=== PATIENT | male | born 1945 | race Caucasian/White ===

== ENCOUNTER 2018-03-17 19:19 | Observation (INO) | payer OTHER ==
[2018-03-17 19:51] LABS: Absolute Lymphocytes (CBC) 1.5 K/uL (0.7-4.9); Absolute Monocytes 0.7 K/uL (0.1-1.3); Absolute Neutrophil 7.7 K/uL (1.8-8.0); Basophils % 0.7 % (0-1.3); Eosinophils % 1.5 % (0-4.4); Hematocrit 49.5 % (39.6-49.0); Lymphocytes % 14.9 % (15.3-44.8); MCH 29.8 pg (27.0-35.0); MCV 90.8 fL (80-100); MPV 9.7 fL (7.6-11.3); Monocytes % 6.9 % (3.3-12.3); RBC Red Blood Cell Count 5.44 M/uL (4.33-5.43)
[2018-03-17 20:01] LABS: Protime INR 0.98
[2018-03-17 20:09] LABS: Potassium 4.6 mEq/L (3.6-5.0)
[2018-03-17 20:15] LABS: Albumin 3.7 g/dL (3.2-5.5); Bilirubin Direct 0.2 mg/dL (0-0.2); Bilirubin Total 0.9 mg/dL (0.3-1.2); Magnesium 1.8 mg/dL (1.8-2.5); Protein, Total 6.6 g/dL (6.0-8.3)
--- NOTE | 2018-03-17 20:31 | RAD REPORT ---
EXAM DESCRIPTION: CT - Stone Protocol - 03/17/2018 8:07 pm CLINICAL HISTORY: Abdominal pain. COMPARISON: 2013 TECHNIQUE: Computed axial tomography of the abdomen pelvis was obtained without oral or IV contrast. Lack of IV and oral contrast limits evaluation of solid organs, bowel, and vessels. Coronal reformat alta images were obtained and reviewed. All CT scans are performed using dose optimization technique as appropriate and may include automated exposure control or mA/KV adjustment according to patient size. FINDINGS: A renal calculus is not seen. An ureteral calculus is not noted. A bladder calculus is not present. A 32 millimeter right renal cyst is present. The liver, spleen, pancreas and adrenals appear grossly normal Postsurgical changes involve the colon. An obstruction is not noted. A small amount of ascites is present. The wall of several loops of small bowel is thickened within th e right upper quadrant as well as the mid abdomen. Stranding is present within the adjacent mesentery IMPRESSION: Negative for a genitourinary calculus Thickened small bowel loops with stranding within the adjacent mesentery could indicate inflammation, infection or ischemia
--- NOTE | 2018-03-17 21:48 | RAD REPORT ---
EXAM DESCRIPTION: Darryl Single View03/17/2018 8:22 pm CLINICAL HISTORY: Chest pain COMPARISON: July 2017 FINDINGS: The lungs appear clear of acute infiltrate. The heart is normal size. Postsurgical change s involve the chest IMPRESSION: No acute abnormalities displayed
--- NOTE | 2018-03-17 22:00 | ER ---
Nurse's Notes [facility] Name: Long Chopra Age: 72 yrs Sex: Male : 1945 Arrival Date: 03/17/2018 Time: 19:21 Bed 27 Private MD: Rios Palomo B Diagnosis: Syncope and collapse;enteritis Presentation: 03/17 19:21 Presenting complaint: EMS states: Pt. arrived from home by EMS, c/o syncope. Pt. states rk2 that he felt as if he was going to pass out... was able to crawl back to the house to get help. Upon EMS arrival orthostatic vitals started; however, pt. had a syncopal episode when sitting up, lasting approx. 30 sec. FSBG 101. Pt. states that he did feel SOB and mild CP before feeling faint. Pt. also reports having abd cramping all morning... denies diarrhea. Transition of care: patient was not received from another setting of care. Onset of symptoms was March 17, 2018. Risk Assessment: Do you want to hurt yourself or someone else? Patient reports no desire to harm self or others. Initial Sepsis Screen: Does the patient meet any 2 criteria? No. Patient's initial sepsis screen is negative. Does the patient have a suspected source of infection? No. Patient's initial sepsis screen is negative. Care prior to arrival: Medication(s) given: Normal saline infusion, 500 mL, IV initiated. 20 GA, in the left antecubital area, Glucose check: 101. 19:21 Method Of Arrival: EMS: [facility] 2 19:21 Acuity: ANA 3 rk2 Triage Assessment: 19:31 General: Appears in no apparent distress. well groomed, well developed, well nourished, rk2 Behavior is calm, cooperative. Pain: Denies pain. Pain: Denies pain. Complains of pain in abdomen. Neuro: Neuro: Reports dizziness. Cardiovascular: No deficits noted. Rhythm is regular. Respiratory: Airway is patent Respiratory effort is even, unlabored, Respiratory pattern is regular, symmetrical. GI: Reports lower abdominal pain, upper abdominal pain, cramping. Derm: Skin is pink, warm \T\ dry. Historical: - Allergies: 19:26 No Known Allergies; rk2 - Home Meds: 20:23 levothyroxine 75 mcg tab 1 tab once daily [Active]; metoprolol tartrate 25 mg Oral tab rk2 1 tab once daily [Active]; escitalopram oxalate 10 mg oral tab 1 tab once daily [Active]; lisinopril 5 mg Oral tab 1 tab once daily [Active]; bupropion HCl 150 mg Oral Tb24 1 tab once daily [Active]; - PMHx: 19:26 CABG; Hypertension; rk2 - Immunization history:: Pneumococcal vaccine is up to date, Flu vaccine is up to date. - Social history:: Smoking status: Patient/guardian denies using tobacco, never smoked. - Ebola Screening: : Patient negative for fever greater than or equal to 101.5 degrees Fahrenheit, and additional compatible Ebola Virus Disease symptoms. Screenin:31 Abuse screen: Denies threats or abuse. Nutritional screening: No deficits noted. rk2 Tuberculosis screening: No symptoms or risk factors identified. Fall Risk Secondary diagnosis (15 points) IV access (20 points). Assessment: 20:32 Reassessment: Patient appears in no apparent distress at this time. No changes from rk2 previously documented assessment. Patient and/or family updated on plan of care and expected duration. Pain level reassessed. Neuro: Level of Consciousness is alert, Oriented to person, place, time, situation. Cardiovascular: Rhythm is regular. 21:30 Reassessment: Patient appears in no apparent distress at this time. No changes from rk2 previously documented assessment. Patient and/or family updated on plan of care and expected duration. Pain level reassessed. Family \T\ bedside. No needs voiced. 22:30 Reassessment: Patient appears in no apparent distress at this time. No changes from rk2 previously documented assessment. Patient and/or family updated on plan of care and expected duration. Pain level reassessed. Vital Signs: 19:27 BP 131 / 110; Pulse 58; Resp 19; Temp 97.5; Pulse Ox 100% on R/A; rk2 20:00 BP 131 / 79; Pulse 56; Resp 17; Pulse Ox 100% on R/A; rk2 21:30 BP 128 / 72; Pulse 56; Resp 17; Pulse Ox 98% on R/A; rk2 23:00 BP 119 / 63; Pulse 58; Resp 17; Pulse Ox 97% on R/A; rk2 ED Course: 19:21 Patient arrived in ED. ds1 19:21 Paty Burdick, RN is Primary Nurse. rk2 19:21 Rios Palomo MD is Private Physician. ds1 19:24 Rigo Estrada MD is Attending Physician. gs 19:25 Triage completed. rk2 19:27 Inserted saline lock: 20 gauge in right antecubital area, using aseptic technique. jb5 Blood collected. 19:31 Patient has correct armband on for positive identification. Bed in low position. Call rk2 light in reach. Side rails up X2. monitor technician on. Pulse ox on. 19:[address] via stretcher. ak 20:07 CT Stone Protocol In Process Unspecified. EDMS 20:12 XRAY Chest (1 view) Sent. rk2 20:20 X-ray completed. Portable x-ray completed in exam room. Patient tolerated procedure nj well. 20:20 XRAY Chest (1 view) In Process Unspecified. EDMS 21:58 Muna Tinsley MD is Hospitalizing Provider. gs 23:37 Arm band placed on. rk2 23:37 No provider procedures requiring assistance completed. Patient admitted, IV remains in rk2 place. Administered Medications: No medications were administered Point of Care Testin:34 completed in blood work rk2 Ranges: Outcome: 21:59 Decision to Hospitalize by Provider. gs 23:37 Admitted to Tele accompanied by tech, via stretcher. rk2 23:37 Condition: improved 23:37 Instructed on the need for admit. 23:38 Patient left the ED. rk2 Signatures: Dispatcher [employer] EDNV Renata Kellogg ds1 Luis Feldman ak Marychuy Queen jb5 Rigo Estrada MD MD Paty Burdick, RN RN rk2 Corrections: (The following items were deleted from the chart) 19:29 19:21 Presenting complaint: EMS states: Pt. arrived from home by EMS, c/o syncope. Pt. rk2 states that he felt as if he was going to pass out... was able to crawl back to the house to get help. Upon EMS arrival orthostatic vitals started; however, pt. had a syncopal episode when sitting up, lasting approx. 30 sec. FSBG 101. rk2 19:34 19:21 Presenting complaint: EMS states: Pt. arrived from home by EMS, c/o syncope. Pt. rk2 states that he felt as if he was going to pass out... was able to crawl back to the house to get help. Upon EMS arrival orthostatic vitals started; however, pt. had a syncopal episode when sitting up, lasting approx. 30 sec. FSBG 101. Pt. states that he did feel SOB and mild CP before feeling faint. rk2
--- NOTE | 2018-03-17 22:00 | EDPHYS ---
Physician Documentation [facility] Name: Long Chopra Age: 72 yrs Sex: Male : 1945 Arrival Date: 03/17/2018 Time: 19:21 Bed 27 Private MD: Rios Palomo B ED Physician Rigo Estrada HPI: 03/17 21:52 This 72 yrs old Male presents to ER via EMS with complaints of Syncope. gs 21:52 The patient has experienced syncope, became unresponsive. Onset: The symptoms/episode gs began/occurred acutely, just prior to arrival. Duration: This was a single episode. Context: Just prior to the episode the patient experienced lightheadedness. Associated injury: The patient did not suffer any apparent associated injury. Associated signs and symptoms: Pertinent positives: abdominal pain, nausea. Current symptoms: Currently, the patient is not experiencing any symptoms. The patient has not experienced similar symptoms in the past. Historical: - Allergies: 19:26 No Known Allergies; rk2 - Home Meds: 20:23 levothyroxine 75 mcg tab 1 tab once daily [Active]; metoprolol tartrate 25 mg Oral tab rk2 1 tab once daily [Active]; escitalopram oxalate 10 mg oral tab 1 tab once daily [Active]; lisinopril 5 mg Oral tab 1 tab once daily [Active]; bupropion HCl 150 mg Oral Tb24 1 tab once daily [Active]; - PMHx: 19:26 CABG; Hypertension; rk2 - Immunization history:: Pneumococcal vaccine is up to date, Flu vaccine is up to date. - Social history:: Smoking status: Patient/guardian denies using tobacco, never smoked. - Ebola Screening: : Patient negative for fever greater than or equal to 101.5 degrees Fahrenheit, and additional compatible Ebola Virus Disease symptoms. ROS: 21:52 All other systems are negative. gs Exam: 21:52 Head/Face: Normocephalic, atraumatic. Eyes: Pupils equal round and reactive to light, gs extra-ocular motions intact. Lids and lashes normal. Conjunctiva and sclera are non-icteric and not injected. Cornea within normal limits. Periorbital areas with no swelling, redness, or edema. ENT: Nares patent. No nasal discharge, no septal abnormalities noted. Tympanic membranes are normal and external auditory canals are clear. Oropharynx with no redness, swelling, or masses, exudates, or evidence of obstruction, uvula midline. Mucous membranes moist. Neck: Trachea midline, no thyromegaly or masses palpated, and no cervical lymphadenopathy. Supple, full range of motion without nuchal rigidity, or vertebral point tenderness. No Meningismus. Chest/axilla: Normal chest wall appearance and motion. Nontender with no deformity. No lesions are appreciated. Cardiovascular: Regular rate and rhythm with a normal S1 and S2. No gallops, murmurs, or rubs. Normal PMI, no JVD. No pulse deficits. Respiratory: Lungs have equal breath sounds bilaterally, clear to auscultation and percussion. No rales, rhonchi or wheezes noted. No increased work of breathing, no retractions or nasal flaring. Back: No spinal tenderness. No costovertebral tenderness. Full range of motion. Skin: Warm, dry with normal turgor. Normal color with no rashes, no lesions, and no evidence of cellulitis. MS/ Extremity: Pulses equal, no cyanosis. Neurovascular intact. Full, normal range of motion. Neuro: Awake and alert, GCS 15, oriented to person, place, time, and situation. Cranial nerves II-XII grossly intact. Motor strength 5/5 in all extremities. Sensory grossly intact. Cerebellar exam normal. Normal gait. 21:52 ECG was reviewed by the Attending Physician. Vital Signs: 19:27 BP 131 / 110; Pulse 58; Resp 19; Temp 97.5; Pulse Ox 100% on R/A; rk2 20:00 BP 131 / 79; Pulse 56; Resp 17; Pulse Ox 100% on R/A; rk2 21:30 BP 128 / 72; Pulse 56; Resp 17; Pulse Ox 98% on R/A; rk2 23:00 BP 119 / 63; Pulse 58; Resp 17; Pulse Ox 97% on R/A; rk2 MDM: 19:35 Patient medically screened. 21:52 Differential Diagnosis: cardiac arrhythmia, idiopathic syncope, seizure, dehydration, gs colitis diverticulitis. Data reviewed: vital signs, nurses notes. Response to treatment: the patient's symptoms have markedly improved after treatment, and as a result, I will discharge patient. 03/17 19:37 Order name: Basic Metabolic Panel; Complete Time: 20:48 03/17 19:37 Order name: CBC with Diff; Complete Time: 20:48 gs 03/17 19:37 Order name: LFT's; Complete Time: 20:48 gs 03/17 19:37 Order name: Magnesium; Complete Time: 20:48 03/17 19:37 Order name: PT-INR; Complete Time: 20:48 gs 03/17 19:37 Order name: Troponin (emerg Dept Use Only); Complete Time: 20:48 03/17 19:37 Order name: XRAY Chest (1 view); Complete Time: 21:51 gs 03/17 19:37 Order name: EKG; Complete Time: 19:37 gs 03/17 19:37 Order name: Cardiac monitoring; Complete Time: 19:40 gs 03/17 19:37 Order name: EKG - Nurse/Tech; Complete Time: 19:38 gs 03/17 19:37 Order name: IV Saline Lock; Complete Time: 19:40 gs 03/17 19:37 Order name: Lipase; Complete Time: 20:48 03/17 19:37 Order name: CT Stone Protocol; Complete Time: 20:48 03/17 21:30 Order name: Urine Dipstick--Ancillary (enter results) rg2 03/17 19:37 Order name: Labs collected and sent; Complete Time: 19:40 gs 03/17 19:37 Order name: O2 Per Protocol; Complete Time: 19:41 03/17 19:37 Order name: O2 Sat Monitoring; Complete Time: 19:41 03/17 19:37 Order name: Urine Dipstick-Ancillary (obtain specimen); Complete Time: 21:27 gs EC:52 Rate is 52 beats/min. Rhythm is regular, Sinus bradycardia. [place] interval is normal. QRS gs interval is normal. T waves are Normal. No ST changes noted. Clinical impression: Abnormal EKG without significant change. Interpreted by me. Administered Medications: No medications were administered Point of Care Testin:34 completed in blood work rk2 Ranges: Critical Glucose Levels:Adult <50 mg/dl or >400 mg/dl <40 mg/dl or >180 mg/dl Disposition: 03/17/18 21:59 Hospitalization ordered by Muna Tinsley for Observation. Preliminary diagnosis are Syncope and collapse, enteritis. - Bed requested for Telemetry/MedSurg (observation). - Status is Observation. rk2 - Condition is Stable. - Problem is new. - Symptoms have improved. UTI on Admission? No Signatures: Dispatcher [employer] EDMaren Ornelas RN RN Rigo Estrada MD MD Paty Burdick RN RN rk2 Corrections: (The following items were deleted from the chart) 23:05 21:59 Hospitalization Ordered by Muna Tinsley MD for Observation. Preliminary diagnosis is Syncope and collapse; enteritis. Bed requested for Telemetry/MedSurg (observation). Status is Observation. Condition is Stable. Problem is new. Symptoms have improved. UTI on Admission? No. 23:38 23:05 03/17/2018 21:59 Hospitalization Ordered by Muna Tinsley MD for Observation. rk2 Preliminary diagnosis is Syncope and collapse; enteritis. Bed requested for Telemetry/MedSurg (observation). Status is Observation. Condition is Stable. Problem is new. Symptoms have improved. UTI on Admission? No.
[2018-03-17 22:15] LABS: Urine Blood NEGATIVE (NEG); Urine Glucose NEGATIVE (NEG); Urine Protein NEGATIVE (NEG); Urine Specific Gravity 1.025 (1.005-1.030); Urine pH 5.5 (5.0-7.0)
[2018-03-17] MEDS ORDERED: MORPHINE 2 MG/ML SYR IV PRN (22:55)
[2018-03-17] MEDS ORDERED: ACETAMINOPHEN 500 MG TAB PO PRN (22:55)
[2018-03-17] MEDS ORDERED: ONDANSETRON 4 MG/2 ML VIAL IV PRN (22:55)
[2018-03-17 23:37] VITALS: BMI 34.2
[2018-03-17] MEDS: NA CHLORIDE 0.9% 1,000 ML IV SCH (23:53)
[2018-03-17 23:56] VITALS: O2SAT 97
[2018-03-18 05:15] LABS: Absolute Lymphocytes (CBC) 1.5 K/uL (0.7-4.9); Absolute Neutrophil 8.2 K/uL (1.8-8.0); Basophils % 0.6 % (0-1.3); Eosinophils % 0.8 % (0-4.4); Hematocrit 44.9 % (39.6-49.0); Lymphocytes % 13.9 % (15.3-44.8); MCH 30.6 pg (27.0-35.0); MCV 90.4 fL (80-100); MPV 9.4 fL (7.6-11.3); Monocytes % 9.4 % (3.3-12.3); RBC Red Blood Cell Count 4.97 M/uL (4.33-5.43)
[2018-03-18 05:49] LABS: Albumin 3.1 g/dL (3.2-5.5); Bilirubin Total 0.5 mg/dL (0.3-1.2); Potassium 4.8 mEq/L (3.6-5.0); Protein, Total 5.5 g/dL (6.0-8.3)
--- NOTE | 2018-03-18 07:40 | EKG ---
Test Date: 2018-03-17 Test Time: 19:32:08 Floor Runner: FRANKLIN MEASUREMENT RESULTS: Intervals: Rate: 52 NM: 178 QRSD: 96 QT: 422 QTc: 392 [place]: P: 44 NM: 178 QRS: 26 T: 50 INTERPRETIVE STATEMENTS: Sinus bradycardia Otherwise normal ECG Compared to ECG 10/16/2013 13:48:11 Sinus rhythm no longer present Electronically Signed On 03-18-18 07:40:01 CDT by Main Crespo
--- NOTE | 2018-03-18 07:41 | P.HP ---
Certification for Inpatient Patient admitted to: Observation With expected LOS: <2 Midnights Patient will require the following post-hospital care: None Practitioner: I am a practitioner with admitting privileges, knowledge of patient current condition, hospital course, and medical plan of care. Services: Services provided to patient in accordance with Admission requirements found in Title 42 Section 412.3 of the Code of Federal Regulations Patient History Date of Service: 03/17/18 Reason for admission: Patient with syncopal event and abdominal discomfort/ diarrhea History of Present Illness: Patient is a 72-year-old gentleman who came to the hospital after passing out. Patient as. When the EMS arrived patient had another syncopal event. He was out for about 30 seconds. He was having some chest discomfort and shortness of breath. He also has some abdominal cramps and was nauseated. It was decided the patient needed admission for syncopal event. Patient's troponins and EKG have been unremarkable. Patient's other lab testing is unremarkable. Patient will be admitted to the hospital for further evaluation. Allergies No Known Allergies Allergy (Verified 03/17/18 23:15) Home Medications: Bupropion HCl [Wellbutrin Sr] 150 mg PO DAILY 03/17/18 Escitalopram [Lexapro*] 10 mg PO DAILY 03/17/18 Levothyroxine Sodium [Levoxyl] 75 mcg PO DAILY 03/17/18 Lisinopril [Prinivil] 5 mg PO DAILY 03/17/18 Metoprolol Succinate [Toprol Xl*] 25 mg PO DAILY 03/17/18 - Past Medical/Surgical History Has patient received pneumonia vaccine in the past: Yes -: HTN -: CABG - Family History Father Family History: Reviewed- Non-Contributory - Social History Smoking Status: Never smoker Alcohol use: No CD- Drugs: No Caffeine use: Yes Place of Residence: Home Review of Systems 10-point ROS is otherwise unremarkable Physical Examination - Vital Signs Temperature: 97.6 F Blood Pressure: 115/66 Pulse: 57 Respirations: 16 Pulse Ox (%): 98 - Physical Exam General: Alert, In no apparent distress, Oriented x3 HEENT: Atraumatic, PERRLA, Mucous membr. moist/pink, EOMI, Sclerae nonicteric Neck: Supple, 2+ carotid pulse no bruit, No LAD, Without JVD or thyroid abnormality Respiratory: Clear to auscultation bilaterally, Normal air movement Cardiovascular: Regular rate/rhythm, Normal S1 S2, No murmurs Gastrointestinal: Normal bowel sounds, Soft and benign, Non-distended, Tenderness (Around the periumbilical area) Musculoskeletal: No clubbing, No swelling, No tenderness Integumentary: No rashes Neurological: Normal gait, Normal speech, Normal strength at 5/5 x4 extr, Normal tone, Sensation intact, Cranial nerves 3-12 intact, Normal affect Lymphatics: No axilla or inguinal lymphadenopathy - Studies Laboratory Data (last 24 hrs) 03/17/18 19:27: PT 11.6, INR 0.98 03/17/18 19:27: WBC 10.2, Hgb 16.2, Hct 49.5 H, Plt Count 207 03/17/18 19:27: Sodium 137, Potassium 4.6, BUN 19, Creatinine 1.58 H, Glucose 124 H, Magnesium 1.8, Total Bilirubin 0.9, AST 21, ALT 16, Alkaline Phosphatase 90, Lipase 32 Assessment & Plan - Problems (Diagnosis) (1) Syncope and collapse Current Visit: Yes Status: Acute (2) Viral enteritis Current Visit: Yes Status: Acute (3) HTN (hypertension) Current Visit: Yes Status: Acute (4) CAD (coronary artery disease) of artery bypass graft Current Visit: Yes Status: Acute - Plan Plan: 1. Carotid Doppler and echocardiogram 2. IV hydration 3. Monitor for fever before using antibiotic to up treat what is possibly a viral enteritis 4. Check orthostatics blood pressures 5. Monitor electrolytes closely 6. Carotid Doppler 7. Monitor on telemetry 8. GI and DVT prophylaxis Discharge Plan: Home Plan to discharge in: 24 Hours - Advance Directives Does patient have a Living Will: No Does patient have a Durable POA for Healthcare: No
[2018-03-18] MEDS ORDERED: Morphine 2 MG/2 ML SYR IV PRN (07:57)
[2018-03-18] MEDS: NA CHLORIDE 0.9% 1,000 ML IV SCH (09:08)
--- NOTE | 2018-03-18 09:22 | RAD REPORT ---
EXAM DESCRIPTION: VASCarotid Artery Bilateral03/18/2018 9:03 am CLINICAL HISTORY: Syncope COMPARISON: None FINDINGS: The velocity of the right internal carotid artery equals 101 cm/sec. The right ICA/CCA rat io 0.8 The velocity of the left internal carotid artery equals 107 cm/sec. The left ICA/CCA ratio 0.9 Mild plaque is present within the carotid arteries. The vertebral arteries demonstrate antegrade flow IMPRESSION: Mild plaque within the carotid arteries without evidence of a hemodynamically significan t stenosis
--- NOTE | 2018-03-18 10:52 | ECHO ---
HEIGHT: 5 ft 11 in WEIGHT: 245 lb 0 oz DATE OF STUDY: 03/18/[address]: Muna Tinsley MD 2-DIMENSIONAL: YES M.MODE: YES DOPPLER: YES COLOR FLOW: YES TDS: NO PORTABLE: NO DEFINITY: NO BUBBLE STUDY: NO DIAGNOSIS: SYNCOPE CARDIAC HISTORY: CATHERIZATION: YES SURGERY: CABGx3 PROSTHETIC VALVE: NO PACEMAKER: NO MEASUREMENTS (cm) DIASTOLIC (NORMALS) SYSTOLIC (NORMALS) IVSd 1.1 (0.6-1.2) LA Diam 4.2 (1.9-4.0) LVEF 70% LVIDd 4.2 (3.5-5.7) LVIDs 2.6 (2.0-3.5) %FS 39% LVPWd 1.2 (0.6-1.2) Ao Diam 2.8 (2.0-3.7) 2 DIMENSIONAL ASSESSMENT: RIGHT ATRIUM: NORMAL LEFT ATRIUM: DILATED RIGHT VENTRICLE: NORMAL LEFT VENTRICLE: NORMAL TRICUSPID VALVE: NORMAL MITRAL VALVE: NORMAL PULMONIC VALVE: NORMAL AORTIC VALVE: NORMAL PERICARDIAL EFFUSION: NONE AORTIC ROOT: NORMAL LEFT VENTRICULAR WALL MOTION: NORMAL. DOPPLER/COLOR FLOW: MILD MITRAL AND TRICUSPID REGURGITATION. NORMAL RIGHT VENTRICULAR SYSTOLIC PRESSURE. COMMENTS: NORMAL LEFT VENTRICULAR EJECTION FRACTION. DILATED LEFT ATRIUM. MILD MITRAL AND TRICUSPID REGURGITATION. TECHNOLOGIST: ANA LAURA GARCIA
[2018-03-18 12:24] LABS: Urine Appearance CLEAR; Urine Bilirubin NEGATIVE (NEG); Urine Blood NEGATIVE (NEG); Urine Color YELLOW; Urine Glucose NEGATIVE (NEG); Urine Protein NEGATIVE (NEG); Urine Specific Gravity 1.025 (1.005-1.030); Urine Urobilinogen 0.2 mg/dL (0.2-1.0); Urine pH 5.5 (5.0-7.0)
[2018-03-18 12:25] LABS: Urine Microscopic Reflex NO UMIC
--- NOTE | 2018-03-18 13:36 | EKG ---
Test Date: 2018-03-18 Test Time: 08:58:52 Glass Furnace Tender: JOSE A MEASUREMENT RESULTS: Intervals: Rate: 58 VT: 180 QRSD: 94 QT: 390 QTc: 382 [place]: P: 47 VT: 180 QRS: 34 T: 47 INTERPRETIVE STATEMENTS: Sinus bradycardia Otherwise normal ECG Compared to ECG 03/17/2018 19:32:08 No significant changes Electronically Signed On 03-18-18 13:36:19 CDT by Main Crespo
--- NOTE | 2018-03-18 14:11 | DS ---
Date of Discharge: 03/18/2018 Admitting Diagnoses: 1.Syncope and collapse. 2.Viral enteritis. 3.Hypertension. 4.Coronary artery bypass graft. Discharge Diagnoses: 1.Syncope and collapse, likely secondary to dehydration. 2.Acute dehydration. 3.Viral enteritis, resolved. 4.Essential hypertension, stable. 5.Coronary artery bypass graft. Hospital Course: The patient is a 72-year-old male, who had a syncopal episode at home and after EMS arrived following a bout of viral enteritis. The patient had been dehydrated, not keeping himself w ell hydrated while working outside. The patient's lab work was essentially negative, except for crea tinine of 1.58, which improved to 1.41 with hydration. Troponin was negative. White count was toy l. The patient's urine was negative for any infection. Chest x-ray was done to rule out any infecti on. No abnormalities were displayed. Further workup including echocardiogram was done, which showed normal ejection fraction. Carotid artery ultrasound was done, which showed no abnormality. CT scan of the abdomen was done due to the patient's presenting symptom of abdominal pain and enteritis, jony wed some thickened small bowel loops with stranding within the adjacent mesentery, could indicate inf lammation, infection or ischemia. The patient did not have any further episodes of diarrhea other th an the night of admission. The patient felt significantly better. His vital signs had improved. Hi s orthostatic vital signs were negative. His pulse, however, was in the low 50s and was high 50s to low 60s. His metoprolol was held. Going forward, the patient was instructed to take half of dose of his metoprolol due to his bradycardia, which may be a cause of his syncopal episode and in correlati on with his acute dehydration. The patient was able to ambulate well without any difficulties. He w as able to the eat. Therefore, the patient was discharged home in a stable condition. Activity: As tolerated. Fall precautions. Followup: Follow up with primary care physician in 2-3 days. Return to ER for worsening condition. Medications: As per medication reconciliation list. Physical Examination: Vital Signs: Stable. Afebrile. General: Awake, alert, oriented x3. No acute distress. Elderly male. CV: S1, S2. No murmurs. Peripheral pulses present. Respiratory: Clear to auscultation bilaterally. No wheezing. No stridor. Gastrointestinal: Abdomen is soft, nontender, and nondistended. Positive bowel sounds. Extremities: No clubbing, cyanosis, or edema. No calf tenderness. Neuro: Cranial nerves 2 through 12 intact grossly. No focal neurological deficit. Speech is normal . /NAGEL Voice ID: [id number] Report ID: [id number]
[2018-03-18 14:51] VITALS: BP 130/67; TEMP 97
[2018-03-19] MEDS ORDERED: LEVOTHYROXINE SOD 0.075 MG TAB PO SCH (06:30)
[2018-03-19] MEDS ORDERED: METOPROLOL XL 25 MG TAB PO SCH (09:00)
[2018-03-19] MEDS ORDERED: BUPROPRION HCL S.R. 150MG TAB PO SCH (09:00)
[2018-03-19] MEDS ORDERED: ESCITALOPRAM 20 MG TAB PO SCH (09:00)
== END 2018-03-18 15:24 | disposition home or self-care (01) ==
LOC: ER 19:19 → ERHOLD 22:30 → 2ND 23:07
PROVIDERS: ADMIT Hospitalist; ATTEND Hospitalist
DX: R55 Syncope and collapse (principal); E86.0 Dehydration; A08.4 Viral intestinal infection, unspecified; I10 Essential (primary) hypertension; Z95.1 Presence of aortocoronary bypass graft
CPT/HCPCS: 36415; 71045; 74176; 76377; 80048; 80053; 80061; 80076; 81003 ×2; 83690; 83735; 84484 ×2; 85025 ×2; 85610; 93005 ×2; 93306; 93880; 99285; G0378 ×2; J2405; J7030 ×2; J2270

== ENCOUNTER 2019-01-04 21:27 | Observation (INO) | payer OTHER ==
[2019-01-04] MEDS ORDERED: ALPRAZOLAM 0.25 MG TABLET PO PRN (23:25)
[2019-01-04] MEDS ORDERED: ACETAMINOPHEN 500 MG TAB PO PRN (23:25)
[2019-01-04 23:41] VITALS: BMI 37.9
--- NOTE | 2019-01-05 07:43 | P.HP ---
Certification for Inpatient Patient admitted to: Observation With expected LOS: <2 Midnights Patient will require the following post-hospital care: None Practitioner: I am a practitioner with admitting privileges, knowledge of patient current condition, hospital course, and medical plan of care. Services: Services provided to patient in accordance with Admission requirements found in Title 42 Section 412.3 of the Code of Federal Regulations Patient History Date of Service: 01/04/19 Reason for admission: Chest pain rule out acute coronary syndrome History of Present Illness: Patient is 73-year-old gentleman came into the hospital with chest discomfort. Pain was mainly in the sternal region. It occurred while he was resting. He checked his blood pressure & it was 230/130. They had friends who were patient portal representative so they called him over and there blood pressure machine also revealed that his blood pressure was significantly elevated. Patient went to [place] the ER for evaluation. In the ER decision was made to transfer to our facility for further workup. His initial troponins were negative. EKG with no abnormal findings. Patient states his symptoms were similar to when he had his chest pain 12 years ago. He had a treadmill stress test that was negative but continued having chest pain. Cardiac catheterization revealed multivessel disease and he had a three-vessel CABG. He had been doing well since that time. His last stress test was a year ago. This did not reveal any abnormalities. Patient does have multiple risk factors including a strong family history. He will be admitted for further workup. Allergies No Known Allergies Allergy (Verified 03/17/18 23:15) Home Medications: Bupropion HCl [Wellbutrin Sr] 150 mg PO DAILY 03/17/18 Escitalopram [Lexapro*] 10 mg PO DAILY 03/17/18 Metoprolol Succinate [Toprol Xl*] 12.5 mg PO DAILY #30 tab 03/18/18 Atorvastatin Calcium [Lipitor*] 40 mg PO DAILY 01/05/19 Levothyroxine [Synthroid] 75 mcg PO [id number] 01/05/19 Omeprazole 20 mg PO DAILY 01/05/19 - Past Medical/Surgical History Diabetic: No -: HTN -: Dyslipidemia -: Anxiety disorder -: Hypothyroidism -: CABG -: TRIPLE BYPASS -: MYAH -: HERNIA - Family History Father Medical History: Heart disease Notes: Patient was a strong family history of heart disease-father in his 40s with heart disease - Social History Smoking Status: Never smoker Alcohol use: No CD- Drugs: No Caffeine use: No Place of Residence: Home Review of Systems 10-point ROS is otherwise unremarkable Physical Examination - Vital Signs Temperature: 97.2 F Blood Pressure: 158/90 Pulse: 63 Respirations: 18 Pulse Ox (%): 94 - Physical Exam General: Alert, In no apparent distress, Oriented x3 HEENT: Atraumatic, PERRLA, Mucous membr. moist/pink, EOMI, Sclerae nonicteric Neck: Supple, 2+ carotid pulse no bruit, No LAD, Without JVD or thyroid abnormality Respiratory: Clear to auscultation bilaterally, Normal air movement Cardiovascular: Regular rate/rhythm, Normal S1 S2, No murmurs Gastrointestinal: Normal bowel sounds, Soft and benign, Non-distended, No tenderness, No rebound Musculoskeletal: No clubbing, No swelling, No tenderness Integumentary: No rashes Neurological: Normal gait, Normal speech, Normal strength at 5/5 x4 extr, Normal tone, Sensation intact, Cranial nerves 3-12 intact, Normal affect Lymphatics: No axilla or inguinal lymphadenopathy - Studies Laboratory Data (last 24 hrs) 01/04/19 23:37: Troponin I < 0.02 Assessment & Plan - Problems (Diagnosis) (1) Chest pain, rule out acute myocardial infarction Current Visit: Yes Status: Acute (2) Dyslipidemia Current Visit: Yes Status: Acute (3) Family history of heart disease Current Visit: Yes Status: Acute (4) CAD (coronary artery disease) of artery bypass graft Onset Date: 03/18/18 Current Visit: No Status: Acute (5) HTN (hypertension) Onset Date: 03/18/18 Current Visit: No Status: Acute - Plan 1. Serial troponins and EKG 2. Cardiology consultation 3. Echocardiogram and stress test if cardiology is agreeable 4. Anti-platelet therapy, anti coagulation, beta-candice, statin, and O2 as needed 5. IV morphine for pain 6. Nitro p.r.n. 7. GI and DVT prophylaxis Discharge Plan: Home Plan to discharge in: 48 Hours - Advance Directives Does patient have a Living Will: Yes Does patient have a Durable POA for Healthcare: No - Code Status/Comfort Care Code Status Assessed: Yes Code Status: Full Code Critical Care: No Time Spent Managing PTS Care (In Minutes): 45
[2019-01-05] MEDS ORDERED: ASPIRIN EC 81 MG TAB PO SCH (09:00)
[2019-01-05] MEDS ORDERED: METOPROLOL TAR 50 MG TAB PO SCH (09:00)
[2019-01-05] MEDS ORDERED: ESCITALOPRAM 20 MG TAB PO SCH (09:00)
[2019-01-05] MEDS ORDERED: BUPROPRION HCL S.R. 150MG TAB PO SCH (09:00)
[2019-01-05] MEDS ORDERED: ENOXAPARIN 40 MG/0.4 ML SQ SCH (09:00)
--- NOTE | 2019-01-05 09:43 | CON ---
History Of Present Illness: Mr. Chopra came to the hospital with chest pain. He notes when he exerts himself too much, his chest feels heavy. He is more out of breath and more fatigued than usual. Th is has been going on for a month, perhaps several months, and he decided to have it evaluated. He ca me to the ER, and was admitted. Since he has been admitted, he has had normal troponin tests and nor mal blood chemistry, although some of the tests are still pending. The patient has CAD. Twelve year s ago, he underwent bypass surgery, and presently he takes cholesterol medicines, atorvastatin 40, th yroid medicine, levothyroxine 75 mcg, omeprazole, metoprolol 12.5 once a day, Wellbutrin, and Lexapro . Social History: He is not a cigarette smoker. He never used alcohol in excess. No illegal drugs. Allergies: HE HAS NO ALLERGIES. Physical Examination: Vital Signs: He is 5 feet 11 inches, 272 pounds. General: Alert, oriented, pleasant, smiling. Neck: No carotid bruit. Lungs: Clear. Heart: Within normal limits. Abdomen: Soft. Extremities: Normal distal pulses. No cyanosis, clubbing, or edema. Laboratory Data: EKG does not show any changes from older EKGs, sinus bradycardia, otherwise normal. Impression: The patient may have unstable angina, it may simply be fatigue that is nonspecific. We will do a pharmacologic stress test and echocardiogram. If there is any sign of recurring ischemia, we will do a cardiac catheterization tomorrow. RICHARD Voice ID: [id number] Report ID: [id number]
[2019-01-05] MEDS ORDERED: REGADENOSON 0.4 MG/5 ML SYR IV ONE (09:46)
[2019-01-05 10:00] VITALS: O2SAT 95
--- NOTE | 2019-01-05 11:15 | ECHO ---
HEIGHT: 5 ft 11 in WEIGHT: 272 lb 1 oz DATE OF STUDY: 01/05/[address]: Muna Tinsley MD 2-DIMENSIONAL: YES M.MODE: YES DOPPLER: YES COLOR FLOW: YES TDS: YES PORTABLE: NO DEFINITY: NO BUBBLE STUDY: NO DIAGNOSIS: CHEST PAIN, RULE OUT ACS CARDIAC HISTORY: CATHERIZATION: YES SURGERY: YES PROSTHETIC VALVE: NO PACEMAKER: NO MEASUREMENTS (cm) DIASTOLIC (NORMALS) SYSTOLIC (NORMALS) IVSd 1.1 (0.6-1.2) LA Diam 3.5 (1.9-4.0) LVEF 69% LVIDd 4.1 (3.5-5.7) LVIDs 2.5 (2.0-3.5) %FS 38% LVPWd 1.3 (0.6-1.2) Ao Diam 3.0 (2.0-3.7) 2 DIMENSIONAL ASSESSMENT: RIGHT ATRIUM: NORMAL LEFT ATRIUM: NORMAL RIGHT VENTRICLE: NORMAL LEFT VENTRICLE: NORMAL TRICUSPID VALVE: NORMAL MITRAL VALVE: NORMAL PULMONIC VALVE: NORMAL AORTIC VALVE: NORMAL PERICARDIAL EFFUSION: NONE AORTIC ROOT: NORMAL LEFT VENTRICULAR WALL MOTION: NORMAL DOPPLER/COLOR FLOW: NORMAL COMMENTS: NORMAL 2D ECHOCARDIOGRAM WITH DOPPLER. TECHNICALLY DIFFICULT STUDY. TECHNOLOGIST: Rosa VACA
[2019-01-05 11:23] LABS: Absolute Lymphocytes (CBC) 1.4 K/uL (0.7-4.9); Absolute Monocytes 0.5 K/uL (0.1-1.3); Absolute Neutrophil 2.9 K/uL (1.8-8.0); Eosinophils % 3.4 % (0-4.4); Lymphocytes % 27.7 % (15.3-44.8); MPV 8.9 fL (7.6-11.3); Monocytes % 10.6 % (3.3-12.3); RBC Red Blood Cell Count 4.72 M/uL (4.33-5.43)
[2019-01-05 11:33] LABS: Albumin 3.2 g/dL (3.4-5.0); Bilirubin Total 0.5 mg/dL (0.2-1.0); Magnesium 2.2 mg/dL (1.8-2.4); Phosphorus 2.8 mg/dL (2.5-4.9); Potassium 4.6 mmol/L (3.5-5.1); Protein, Total 6.7 g/dL (6.4-8.2)
--- NOTE | 2019-01-05 12:57 | P.PN ---
Subjective Date of Service: 01/05/19 Chief Complaint: Chest pain rule out acute coronary syndrome Pt seen and examined at bedside. Chart Reviewed. Case DW with Cardiology. Currently Scheduled for stress test and echo. Review of Systems 10-point ROS is otherwise unremarkable Physical Examination - Vital Signs Temperature: 96.9 F Blood Pressure: 153/81 Pulse: 80 Respirations: 18 Pulse Ox (%): 99 - Physical Exam General: Alert, In no apparent distress HEENT: Atraumatic, PERRLA, EOMI Neck: Supple, JVD not distended Respiratory: Clear to auscultation bilaterally, Normal air movement Cardiovascular: Regular rate/rhythm, Normal S1 S2 Gastrointestinal: Normal bowel sounds, No tenderness Musculoskeletal: No tenderness Integumentary: No rashes Neurological: Normal speech, Normal tone, Normal affect Lymphatics: No axilla or inguinal lymphadenopathy - Studies Laboratory Data (last 24 hrs) 01/05/19 10:59: Sodium 143, Potassium 4.6, BUN 20 H, Creatinine 1.45 H, Glucose 119 H, Phosphorus 2.8, Magnesium 2.2, Total Bilirubin 0.5, AST 21, ALT 22, Alkaline Phosphatase 107 01/05/19 10:59: WBC 5.1, Hgb 14.2, Hct 42.0, Plt Count 165 01/05/19 07:33: Troponin I < 0.02 01/04/19 23:37: Troponin I < 0.02 Medications List Reviewed: Yes Assessment And Plan - Current Problems (Diagnosis) (1) Chest pain, rule out acute myocardial infarction Current Visit: Yes Status: Acute Plan: Chest Pain with h/o of CAD -Troponin x 2 negative and EKG WNL -Cardiology consulted. Appreciated Reccs -ECHO and stress -Will f.u with Results. (2) Dyslipidemia Current Visit: Yes Status: Chronic (3) CAD (coronary artery disease) of artery bypass graft Onset Date: 03/18/18 Current Visit: No Status: Chronic Qualifiers: [place] vs. transplanted heart: [place] heart Associated angina: without angina Qualified Code(s): I25.810 - Atherosclerosis of coronary artery bypass graft(s) without angina pectoris (4) HTN (hypertension) Onset Date: 03/18/18 Current Visit: No Status: Chronic Qualifiers: Hypertension type: essential hypertension Qualified Code(s): I10 - Essential (primary) hypertension - Plan Pending Stress and ECHO at this time. Will F.u with Results. Discharge Plan: Home Plan to discharge in: 48 Hours - Code Status/Comfort Care Code Status Assessed: Yes Critical Care: No
--- NOTE | 2019-01-05 13:49 | RAD REPORT ---
EXAM DESCRIPTION: NM - Rest Stress Cardiac Imaging - 01/05/2019 1:40 pm CLINICAL HISTORY: CP Chest pain. COMPARISON: No comparisons TECHNIQUE: The patient was administered approximately 10mCi of Tc 99m Sestamibi prior to resting SPE CT imaging of the heart. The patient was then administered approximately 30 mCi of Tc 99m Sestamibi f ollowing exercise or pharmacologic stress. Multiplanar SPECT images were reviewed. FINDINGS: No stress induced ischemic defect is seen to suggest stress induced ischemia. No fixed def ect is seen to suggest hibernating myocardium or scarred myocardium. The end diastolic volume is 90 ml, the end systolic volume is 46 ml, and the ejection fraction is 49 %. IMPRESSION: No stress induced ischemia.
[2019-01-05 16:44] VITALS: BP 139/83; TEMP 96.7
--- NOTE | 2019-01-05 17:25 | TREADPHA ---
DX: CHEST PAIN Date of Study: 01/05/19 Ht: 5 11 Wt: 272 lb 1 oz Consulting Physician: JOSE ARMANDO MEDICATIONS: TYLENOL, XANAX, ASPIRIN, LIPITOR, WELLBUTRIN, LOVENOX, LEXAPRO, SYNTHROID, LOPRESSOR, PROTONIX, NORMAL SALINE. HISTORY: 73 YEAR MALE, COMPLAINTS OF CHEST PAIN, AND SHORTNESS OF BREATH. HISTORY: HYPERTENSION, BYPASS, HYPERLIPIDEMIA. PHYSICIAL EXAMINATION: RESTING B.P.: 141/92 RESTING H.R.: 54 RESTING EKG: SINUS BRADYCARDIA, OTHERWISE NORMAL. PROTOCOL: LEXISCAN EXERCISE TIME: 3:30 B.P. AT [place] STRESS: 153/89 IMPRESSION: LEXISCAN INJECTED, FOLLOWED BY CARDIOLITE PER PROTOCOL, SEE NUCLEAR MEDICINE REPORT. NO SUPRAVENTRICULAR TACHYCARDIA, VENTRICULAR TACHYCARDIA, PREMATURE ATRIAL COMPLEXS, OR PREMATURE VENTRICULAR COMPLEXS. PATIENT REPORTED NO CHEST PAIN. NON-DIAGNOSTIC ELECTROCARDIOGRAM WITH LEXISCAN STRESS.
--- NOTE | 2019-01-05 18:46 | P.SSS ---
Patient History Date of Service: 01/05/19 Reason for admission: Chest pain rule out acute coronary syndrome History of Present Illness: Patient is 73-year-old gentleman came into the hospital with chest discomfort. Pain was mainly in the sternal region. It occurred while he was resting. He checked his blood pressure & it was 230/130. They had friends who were army officer so they called him over and there blood pressure machine also revealed that his blood pressure was significantly elevated. Patient went to [place] the ER for evaluation. In the ER decision was made to transfer to our facility for further workup. His initial troponins were negative. EKG with no abnormal findings. Patient states his symptoms were similar to when he had his chest pain 12 years ago. He had a treadmill stress test that was negative but continued having chest pain. Cardiac catheterization revealed multivessel disease and he had a three-vessel CABG. He had been doing well since that time. His last stress test was a year ago. This did not reveal any abnormalities. Patient does have multiple risk factors including a strong family history. He will be admitted for further workup. Allergies No Known Allergies Allergy (Verified 03/17/18 23:15) Home Medications: Bupropion HCl [Wellbutrin Sr] 150 mg PO DAILY 03/17/18 Escitalopram [Lexapro*] 10 mg PO DAILY 03/17/18 Metoprolol Succinate [Toprol Xl*] 12.5 mg PO DAILY #30 tab 03/18/18 Atorvastatin Calcium [Lipitor*] 40 mg PO DAILY 01/05/19 Levothyroxine [Synthroid] 75 mcg PO [id number] 01/05/19 Omeprazole 20 mg PO DAILY 01/05/19 - Past Medical/Surgical History Diabetic: No -: HTN -: Dyslipidemia -: Anxiety disorder -: Hypothyroidism -: CABG -: TRIPLE BYPASS -: MYAH -: HERNIA - Family History Father -: Heart disease Notes: Patient was a strong family history of heart disease-father in his 40s with heart disease - Social History Smoking Status: Never smoker Alcohol use: No CD- Drugs: No Caffeine use: No Place of Residence: Home Review of Systems 10-point ROS is otherwise unremarkable Physical Examination - Vital Signs Temperature: 96.7 F Blood Pressure: 139/83 Pulse: 58 Respirations: 17 Pulse Ox (%): 98 - Physical Exam General: Alert, In no apparent distress HEENT: Atraumatic, PERRLA, Mucous membr. moist/pink, EOMI, Sclerae nonicteric Neck: Supple, 2+ carotid pulse no bruit, No LAD, Without JVD or thyroid abnormality Respiratory: Clear to auscultation bilaterally, Normal air movement Cardiovascular: Regular rate/rhythm, Normal S1 S2 Gastrointestinal: Normal bowel sounds, No tenderness Musculoskeletal: No tenderness Integumentary: No rashes Neurological: Normal gait, Normal speech, Normal strength at 5/5 x4 extr, Normal tone, Normal affect Lymphatics: No axilla or inguinal lymphadenopathy - Studies Laboratory Data (last 24 hrs) 01/05/19 10:59: Sodium 143, Potassium 4.6, BUN 20 H, Creatinine 1.45 H, Glucose 119 H, Phosphorus 2.8, Magnesium 2.2, Total Bilirubin 0.5, AST 21, ALT 22, Alkaline Phosphatase 107 01/05/19 10:59: WBC 5.1, Hgb 14.2, Hct 42.0, Plt Count 165 01/05/19 07:33: Troponin I < 0.02 01/04/19 23:37: Troponin I < 0.02 - Diagnosis (Problem(s)) (1) Chest pain, rule out acute myocardial infarction Current Visit: Yes Status: Acute Plan: Chest Pain with h/o of CAD -Troponin x 2 negative and EKG WNL -Cardiology consulted. Appreciated Reccs -ECHO and stress WNL as well -DC home per Cardiology reccs (2) Dyslipidemia Current Visit: Yes Status: Chronic (3) CAD (coronary artery disease) of artery bypass graft Onset Date: 03/18/18 Current Visit: No Status: Chronic Qualifiers: [place] vs. transplanted heart: [place] heart Associated angina: without angina Qualified Code(s): I25.810 - Atherosclerosis of coronary artery bypass graft(s) without angina pectoris (4) HTN (hypertension) Onset Date: 03/18/18 Current Visit: No Status: Chronic Qualifiers: Hypertension type: essential hypertension Qualified Code(s): I10 - Essential (primary) hypertension - Disposition Disposition: ROUTINE DISCHARGE
[2019-01-05] MEDS ORDERED: ATORVASTATIN 20 MG TAB PO SCH (21:00)
[2019-01-06] MEDS ORDERED: LEVOTHYROXINE SOD 0.075 MG TAB PO SCH (06:00)
[2019-01-06] MEDS ORDERED: PANTOPRAZOLE 40MG TABLET PO SCH (06:30)
== END 2019-01-05 19:05 | disposition home or self-care (01) ==
LOC: 2ND 23:14
PROVIDERS: ADMIT Hospitalist; ATTEND Hospitalist
DX: R07.9 Chest pain, unspecified (principal); E03.9 Hypothyroidism, unspecified; F41.9 Anxiety disorder, unspecified; E78.5 Hyperlipidemia, unspecified; I10 Essential (primary) hypertension; I25.10 Atherosclerotic heart disease of native coronary artery without angina pectoris; Z95.1 Presence of aortocoronary bypass graft
CPT/HCPCS: 93005; 93017; 93306; 85025; 36415; 83735; 84100; 84484 ×2; 80053; 78452; J2785; A9500; G0379; G0378

== ENCOUNTER 2019-03-16 06:30 | Day surgery (SDC) | payer OTHER ==
--- NOTE | 2019-03-15 14:56 | EKG ---
Test Date: 2019-03-15 Test Time: 14:54:05 Shallot Cleaner: DEYVI MEASUREMENT RESULTS: Intervals: Rate: 56 MO: 180 QRSD: 96 QT: 410 QTc: 395 [place]: P: 39 MO: 180 QRS: 35 T: 51 INTERPRETIVE STATEMENTS: Sinus bradycardia Otherwise normal ECG Compared to ECG 01/05/2019 08:49:51 No significant changes Electronically Signed On 03-15-19 14:56:07 CDT by Main Crespo
--- NOTE | 2019-03-15 15:20 | RAD REPORT ---
EXAM DESCRIPTION: Darryl Ortiz (2 Views)03/15/2019 3:05 pm CLINICAL HISTORY: Hypertension/preop exam for heart catheterization COMPARISON: March 2018 FINDINGS: The lungs appear clear of acute infiltrate. The heart is normal size Postsurgical changes involve chest IMPRESSION: No acute abnormalities displayed
[2019-03-15 15:50] LABS: Absolute Lymphocytes (CBC) 1.6 K/uL (0.7-4.9); Absolute Monocytes 0.6 K/uL (0.1-1.3); Absolute Neutrophil 3.6 K/uL (1.8-8.0); Basophils % 1.1 % (0-1.3); Hematocrit 43.4 % (39.6-49.0); Lymphocytes % 26.8 % (15.3-44.8); MPV 9.5 fL (7.6-11.3); RBC Red Blood Cell Count 4.68 M/uL (4.33-5.43)
[2019-03-15 15:57] LABS: Protime INR 1.01
[2019-03-15 16:07] LABS: Potassium 4.2 mmol/L (3.5-5.1)
[2019-03-16] MEDS ORDERED: NA CHLORIDE 0.9% 500 ML ONE (06:48)
[2019-03-16] MEDS ORDERED: LIDOCAINE 1% MPF 30 ML VIAL ONE (06:48)
[2019-03-16] MEDS ORDERED: HEPA 1000U/500MLS 1,000 UNIT/500 ML BAG IV ONE ×2 (06:48→07:20)
[2019-03-16] MEDS ORDERED: MIDAZOLAM HCL 2 MG/2 ML INJ ONE (07:31)
[2019-03-16] MEDS ORDERED: FENTANYL CITR 100 MCG/2 ML ONE (07:31)
[2019-03-16] MEDS ORDERED: NA CHLORIDE 0.9% 0 ML ONE (07:31)
[2019-03-16] MEDS ORDERED: ATROPINE SULF 1 MG/10 ML SYR IV ONE (07:31)
[2019-03-16 09:58] VITALS: BP 117/60; TEMP 97.5; O2SAT 99
--- NOTE | 2019-03-16 13:45 | OP ---
Date of Procedure: 03/16/2019 Surgeon: Jimbo Cai MD Song And Dance Performer: David Mott and Ms. Hood. Procedures: Left heart catheterization, selective coronary arteriogram, left ventriculogram, vein gr aft injection, and left internal mammary artery injection. Indications For Procedure: Coronary artery disease and unstable angina. Description Of Procedure: The patient was prepped and draped in the routine sterile fashion and give n 2 mg of Versed for IV sedation. A 6-[place] sheath was introduced in the right common femoral arter y successfully. StarClose was used to close the case. Angiography there was normal. Opal cathet er, left and right were used to do the procedure. He had a patent MYERS to the LAD, it was small and atretic. He had a patent vein graft to the OM, normal RCA, normal EF, normal EDP. No wall motion abn ormalities. A pigtail was used to do the LV-gram. A 6-[place] sheath and catheters were used. There were no complications. Blood Loss: 5 cc. Anesthesia: Total conscious sedation was 30 minutes. Postoperative Diagnosis: Moderate coronary artery disease. Plan: Medical therapy. NB/MODL Voice ID: [id number] Report ID: [id number]
== END 2019-03-16 10:04 | disposition home or self-care (01) ==
LOC: CCL 06:30
DX: I25.10 Atherosclerotic heart disease of native coronary artery without angina pectoris (principal); I10 Essential (primary) hypertension; E78.6 Lipoprotein deficiency; E03.9 Hypothyroidism, unspecified; K21.9 Gastro-esophageal reflux disease without esophagitis; F41.9 Anxiety disorder, unspecified; F32.9 Major depressive disorder, single episode, unspecified; Z95.1 Presence of aortocoronary bypass graft; Z79.82 Long term (current) use of aspirin; Z79.899 Other long term (current) drug therapy
CPT/HCPCS: 93005; 85025; 80048; 36415; 85610; 85730; 71046; 93459; C1893; J2250; J3010; J0583